=== PATIENT | male | born 1960 | race Caucasian/White ===

== ENCOUNTER 2021-06-14 10:32 | Emergency (ER) | payer MEDICARE, OTHER ==
[2021-06-14] MEDS ORDERED: Dexamethasone 10 MG/ML VIAL ONE (11:35)
[2021-06-14] MEDS ORDERED: Morphine 10 MG/ML VIAL ONE (11:36)
== END 2021-06-14 12:59 | disposition home or self-care (01) ==
LOC: CSHERS 10:32
DX: M54.50 Low back pain, unspecified (principal); I10 Essential (primary) hypertension; Z87.891 Personal history of nicotine dependence
CPT/HCPCS: 96372; 99283; J1100; J1642; J2270

== ENCOUNTER 2021-06-20 13:59 | Emergency (ER) | payer MEDICARE, OTHER ==
[2021-06-20 16:41] LABS: Hemoglobin 14.3 g/dL (13.5-17.5); Manual Diff?? YES; Mean Corpuscular HGB CONC 33.5 g/dL (32.0-36.0); Mean Corpuscular Hemoglobin 31.7 pg (27.0-33.0); Mean Corpuscular Volume 94.7 fl (81.2-95.1); Mean Platelet Volume 10.6 fl (7.4-10.4); Platelet Count 306 10x3/uL (150-450); RBC Distribution Width 12.8 % (11.5-14.5); Red Blood Cell (RBC) Count 4.51 10x6/uL (4.32-5.72); White Blood Cell (WBC) Count 12.7 10x3/uL (3.5-10.5)
[2021-06-20 16:42] LABS: Bilirubin Neg (Negative); Blood, Urine 25 (Negative); Clarity Clear (Clear); Glucose, Urine (Dipstick) Normal (Negative); Ketone, Urine Negative (Negative); Leukocyte 25 (Negative); Nitrite Negative (Negative); Protein, Urine (Dipstick) 30 mg/dl (Neg-Trace); Urobilinogen Normal mg/dL (Less than 2)
[2021-06-20 16:53] LABS: ALT (SGPT) 69 U/L (8-55); AST (SGOT) 100 U/L (5-34); Albumin 3.9 g/dL (3.4-4.8); Alkaline Phosphatase 97 U/L (40-110); Anion Gap 15 mmol/L (10-20); BUN (Urea Nitrogen) 26 mg/dL (8.4-25.7); Calc. Creatinine Clearance 0 mL/min (70-130); Calcium 8.6 mg/dL (7.8-10.44); Carbon Dioxide 22 mmol/L (23-31); Chloride 103 mmol/L (98-107); Globulin 2.6 g/dL (2.4-3.5); Glucose 94 mg/dL (80-115); Lipase 168 U/L (8-78); Potassium 4.3 mmol/L (3.5-5.1); Protein, Total 6.5 g/dL (5.8-8.1); Sodium 136 mmol/L (136-145)
[2021-06-20 17:08] LABS: Bacteria/HPF Rare-Few HPF (None Seen); Mucous/LPF Rare LPF (<2+); RBC/HPF 0-3 HPF (0-3); Squamous Epithelial 0-3 HPF (0-3); WBC/HPF 0-3 HPF (0-3)
[2021-06-20 18:59] LABS: Eosinophils 1 % (0-10); Lymphocytes 17 % (21-51); MDiff Complete? YES; Monocytes 13 % (0-10); Neutrophil 69 % (42-75)
[2021-06-20 19:00] LABS: Large Platelets SLIGHT; Platelet Morphology Comment Appears Adequate; RBC Morphology Normal
== END 2021-06-20 21:37 | disposition home or self-care (01) ==
LOC: CSHERS 13:59
DX: M54.9 Dorsalgia, unspecified (principal); I10 Essential (primary) hypertension; Z86.73 Personal history of transient ischemic attack (TIA), and cerebral infarction without residual deficits; Z87.891 Personal history of nicotine dependence
CPT/HCPCS: 71045; 74176; 80053; 81003; 81015; 83690; 84484; 85025; 93005; J1642

== ENCOUNTER 2022-07-02 12:49 | Outpatient (CLI) | payer MEDICARE, OTHER ==
[~2022-07-02 12:49] MED LIST: Magnevist 469MG/ML 20 ML VIAL ONE
== END 2022-07-02 12:50 | disposition home or self-care (01) ==
LOC: CSHMRI 12:49
PROVIDERS: ATTEND Anesthesiology Pain Medicine
DX: M46.44 Discitis, unspecified, thoracic region (principal); M46.46 Discitis, unspecified, lumbar region; M47.814 Spondylosis without myelopathy or radiculopathy, thoracic region; B94.8 Sequelae of other specified infectious and parasitic diseases; Z98.890 Other specified postprocedural states
CPT/HCPCS: 72157; 72158; 82565

== ENCOUNTER 2024-05-17 12:49 | Outpatient (CLI) | payer MEDICARE, MEDICAID | END 2024-05-17 12:50 | disposition home or self-care (01) | LOC: CSHULT 12:49 | PROVIDERS: ATTEND Nurse Practitioner Family | DX: N45.2 Orchitis (principal); N50.89 Other specified disorders of the male genital organs; N43.3 Hydrocele, unspecified; N50.3 Cyst of epididymis | CPT/HCPCS: 76856; 76870; 93976 ==